=== PATIENT | female | born 1980 | race Two or more races ===

== ENCOUNTER → 2022-05-26 | Emergency (ER) | payer OTHER ==
[~2022-05-26] VITALS: Ht 157.5 cm; Wt 61.7 kg
[~2022-05-26] MED LIST: DICLOFENAC SODI75 MG PO
== END | disposition home or self-care (01) ==
LOC: ER 16:43
DX: S29.8XXA Other specified injuries of thorax, initial encounter (principal); S89.82XA Other specified injuries of left lower leg, initial encounter; W20.8XXA Other cause of strike by thrown, projected or falling object, initial encounter; Y93.31 Activity, mountain climbing, rock climbing and wall climbing; Y92.89 Other specified places as the place of occurrence of the external cause; Y99.8 Other external cause status; Z88.0 Allergy status to penicillin; Z91.041 Radiographic dye allergy status